=== PATIENT | male | born 1985 | race African-American/Black ===

== ENCOUNTER 2020-09-14 13:45 | Emergency (ER) | payer BC, OTHER ==
[~2020-09-14] VITALS: Ht 177.8 cm; Wt 63.5 kg
[2020-09-14] MEDS ORDERED: HYDROXYZINE HCL10 M2 PO (15:00)
[2020-09-14 15:08] VITALS: BP 101/64
== END 2020-09-14 15:10 | disposition home or self-care (01) ==
LOC: ER 13:45
DX: F41.0 Panic disorder [episodic paroxysmal anxiety] (principal); F41.9 Anxiety disorder, unspecified; F32.9 Major depressive disorder, single episode, unspecified; Z86.16 Personal history of COVID-19; Z88.0 Allergy status to penicillin